=== PATIENT | male | born 1995 | race Two or more races ===

== ENCOUNTER 2020-03-18 10:16 | Emergency (ER) | payer SELFPAY ==
[~2020-03-18] VITALS: Ht 175.3 cm; Wt 77.1 kg
[2020-03-18 12:31] LABS: Basophils # (auto) 0 10 ^3/uL (0-0.2); Basophils % (auto) 0.6 % (0.0-2.0); Eosinophils # (auto) 0.1 10 ^3/uL (0-0.8); Eosinophils % (auto) 0.8 % (0.0-7.0); Hematocrit 42.4 % (41.0-53.0); Hemoglobin 14.3 g/dL (13.5-17.5); Lymphocytes % (auto) 31.4 % (10.0-50.0); Mean Corpuscular Hemoglobin 28.9 pg (28.0-32.0); Mean Corpuscular Hgb Conc. 33.7 g/dL (32.0-36.0); Mean Corpuscular Volume 85.8 fL (80.0-100.0); Monocytes # (auto) 0.6 10 ^3/uL (0-1.3); Monocytes % (auto) 9.3 % (0.0-12.0); Neutrophils # (auto) 3.7 10 ^3/uL (1.6-8.6); Neutrophils % (auto) 57.9 % (37.0-80.0); Platelet Count (auto) 329 10^3/uL (140-450); Red Blood Cells 4.94 10^6/uL (4.5-5.90); Red Cell Distribution Width 13.2 % (11.8-14.3); White Blood Cell 6.5 10^3/uL (4.4-10.8)
[2020-03-18 12:48] LABS: Calcium 8.9 mg/dL (8.5-10.1)
[2020-03-18 12:54] LABS: Albumin 3.7 g/dL (3.4-5.0); BUN/Creatinine Ratio 10.1; Bilirubin, Total 0.3 mg/dL (0.2-1.0); Total Protein 8.2 g/dL (6.4-8.2)
[2020-03-18 13:09] VITALS: BP 139/92
[2020-03-18] MEDS ORDERED: cefTRIAXone 1GM/50ML D5W 50 ML IV ONE (13:15)
== END 2020-03-18 14:01 | disposition home or self-care (01) ==
LOC: ER 10:16
DX: L03.115 Cellulitis of right lower limb (principal); F17.210 Nicotine dependence, cigarettes, uncomplicated
CPT/HCPCS: 36415; 73501; 73700; 80053; 83605; 85025; 87040; 96365; 99285; J0696

== ENCOUNTER 2020-07-31 12:15 | Emergency (ER) | payer SELFPAY ==
[~2020-07-31] VITALS: Ht 175.3 cm; Wt 77.1 kg
[2020-07-31 13:03] VITALS: BP 139/88
== END 2020-07-31 15:24 | disposition left against medical advice (07) ==
LOC: ER 12:15
DX: H57.89 Other specified disorders of eye and adnexa (principal); Z53.21 Procedure and treatment not carried out due to patient leaving prior to being seen by health care provider

== ENCOUNTER 2020-12-10 05:34 | Emergency (ER) | payer SELFPAY ==
[~2020-12-10] VITALS: Ht 177.8 cm; Wt 81.6 kg
[2020-12-10 05:35] VITALS: BP 131/83
== END 2020-12-10 20:46 | disposition left against medical advice (07) ==
LOC: ER 05:34
DX: H57.12 Ocular pain, left eye (principal); Z53.21 Procedure and treatment not carried out due to patient leaving prior to being seen by health care provider